=== PATIENT | female | born 1965 | race Caucasian/White ===

== ENCOUNTER → 2020-08-26 | Outpatient (CLI) | payer OTHER, MEDICAID ==
[~2020-08-26] MED LIST: ACETAMINOPHEN-1 EAC1 PO; ADVAIR HFA 230M12 GM INH; ADVAIR HFA115 MCG/21 INH; AMBIEN 10 MG TA10 MG PO; BENTYL 20 MG TA20 M1 PO; CELEXA40 MG PO; DIABETA 5MG TABL5 MG PO; FLEXERIL PO; FLONASE 0.05%50 MCG NASAL; FLOXIN OTI0.3 %/5 M1 OT; GLUCOPHAGE XR500 MG; HYDROCHLOROTH12.5 M1 PO; HYDROCHLOROTHIA25 M2 PO; HYDROCODONE-AP1 EAC6 PO; LEVAQUIN 500 M500 MG PO; LIDODERM 5%1 PATCH TOP; LISINOPRIL-HCT1 EAC2 PO; LISINOPRIL10 MG PO; LISINOPRIL20 MG PO; LISINOPRIL5 MG PO; MACROBID 100 M100 M1 PO; MAXALT MLT ODT10 M1 PO; MEDROLDOSEPACK PO; MOBIC7.5 MG PO; NORCO 10-325 T1 EACH PO; NORCO 5-325 TA1 EAC1 PO; NORCO 5-325 TA1 EACH PO; NORTRIPTYLINE H25 M3 PO; NYAMYC15 GM TOP; PERCOCET 5-3251 EACH PO; PERCOCET 7.5-31 EACH PO; PHENERGAN 25 MG25 M1 PO; PREDNISONE 10 M10 MG PO; PREDNISONE 20 M20 MG PO; PREDNISONE50 MG PO; PRINIVIL20 MG PO; PROAIR HFA8.5 GM INH; PROVENTIL HFA6.7 G1 INH; QUININE HCL1 GM; RITALIN5 MG; SENNA-S TABLET1 EACH; TESSALON PERLE100 MG PO; TRAMADOL 50 MG50 MG PO; TYLENOL W/CODEI1 TA2 PO; ULTRAM 50MG TAB50 MG PO; VALIUM2 MG PO; VENTOLIN HFA 1818 GM INH; XANAX 0.25 MG0.25 MG PO; ZPAK PO; [UNRECOGNIZED DRUG - REMARK]
== END ==
LOC: M.LAB 07:21
PROVIDERS: ATTEND Orthopaedic Surgery
DX: Z01.812 Encounter for preprocedural laboratory examination (principal); Z20.822 Contact with and (suspected) exposure to COVID-19

== ENCOUNTER 2021-01-22 13:25 | Emergency (ER) | payer OTHER, MEDICAID ==
[~2021-01-22] VITALS: Ht 167.6 cm; Wt 104.3 kg
[~2021-01-22 13:25] MED LIST changes: +ADVAIR 250-501 EACH INH; +AMOXICILLIN875 MG PO; +IRON160 M1 PO; +LIPITOR 20 MG T20 M1 PO; +NEURONTIN 300M300 M2 PO
[2021-01-22 14:22] LABS: ABSOLUTE BASOPHILS 0.1 thou/uL (0.0-0.2); ABSOLUTE EOSINOPHILS 0.2 thou/uL (0.0-0.7); ABSOLUTE LYMPHOCYTES 2.5 thou/uL (0.8-5.3); ABSOLUTE MONOCYTES 0.5 thou/uL (0.0-1.2); ABSOLUTE NEUTROPHILS 5.3 thou/uL (1.6-8.1); BASOPHILS 0.8 %; EOSINOPHILS 2.1 %; HEMATOCRIT 39.5 % (37.0-47.0); HEMOGLOBIN 13.6 gm/dL (12.0-15.0); LYMPHOCYTES 29.5 %; MCH 31.6 pg (26.0-34.0); MCHC 34.4 g/dL (28.0-37.0); MCV 91.8 fL (80.0-100.0); MONOCYTES 5.9 %; NUCLEATED RBCS 0 /100WBC; PLATELET COUNT* 237 thou/uL (150-400); POLYS 61.7 %; RDW-CV 14.5 % (10.5-14.5); WBC 8.5 thou/uL (4.0-11.0)
[2021-01-22 14:32] LABS: CALCIUM 8.8 mg/dL (8.5-10.1); POTASSIUM 3.2 mmol/L (3.5-5.1)
[2021-01-22 14:36] LABS: ALBUMIN 3.3 g/dL (3.4-5.0); TOTAL BILIRUBIN 0.4 mg/dL (<0.1-1.0); TOTAL PROTEIN 7.3 g/dL (6.4-8.2)
[2021-01-22] MEDS ORDERED: CEPHALEXIN500 MG PO (15:13)
[2021-01-22] MEDS ORDERED: HYDROCODON-ACE1 EAC7 PO (15:13)
[2021-01-22 15:27] VITALS: BP 144/85
== END 2021-01-22 15:28 | disposition home or self-care (01) ==
LOC: M.ERS 13:25
PROVIDERS: Emergency Medicine Emergency Medical Services
DX: M79.671 Pain in right foot (principal); G89.29 Other chronic pain; J45.909 Unspecified asthma, uncomplicated; E11.9 Type 2 diabetes mellitus without complications; Z88.5 Allergy status to narcotic agent; Z91.040 Latex allergy status; Z88.6 Allergy status to analgesic agent; Z88.8 Allergy status to other drugs, medicaments and biological substances; Z90.49 Acquired absence of other specified parts of digestive tract; Z90.710 Acquired absence of both cervix and uterus

== ENCOUNTER → 2021-09-26 | Outpatient (CLI) | payer OTHER, MEDICAID ==
[~2021-09-26] MED LIST changes: +CEPHALEXIN500 MG PO; +HYDROCODON-ACE1 EAC7 PO; +MOBIC15 MG PO
== END ==
LOC: M.LAB 09:35
PROVIDERS: ATTEND Orthopaedic Surgery
DX: Z01.812 Encounter for preprocedural laboratory examination (principal); Z20.822 Contact with and (suspected) exposure to COVID-19